=== PATIENT | male | born 1980 | race Caucasian/White ===

== ENCOUNTER 2020-10-26 09:10 | Emergency (ER) | payer OTHER, SELFPAY ==
[2020-10-26 09:18] VITALS: BP 117/70; PULSE 92; RESP 20; TEMP 36.8; O2SAT 99
--- NOTE | 2020-10-26 09:23 | ED.EAR ---
HPI - Ear Problem General Chief complaint: Ear Stated complaint: left ear infection Time Seen by Provider: 10/26/20 09:23 Source: patient and RN notes reviewed Mode of arrival: ambulatory Limitations: no limitations History of Present Illness HPI Narrative: 40-year-old male presents to the [facility] with complaints of left ear pain for 3 days. Patient denies any injury to the area. Has swelling, redness, tenderness to the upper ear lobe. Has tried applying antibiotic ointment but states it was draining so he came to seek medical attention. Denies fevers. Denies any past medical or surgical history Related Data Allergies Allergy/AdvReac Type Severity Reaction Status Date / Time No Known Allergies Allergy Verified 10/26/20 09:36 Review of Systems Review of Systems: Narrative: CONSTITUTIONAL: Denies fever, chills, or sweats. EYES: Denies visual changes, redness, or discharge. ENT: Denies rhinorrhea, congestion, sore throat, or otalgia. CARDIOVASCULAR: Denies chest pain, palpitations, or edema. RESPIRATORY: Denies cough or dyspnea. SKIN: Denies rash or itching. Left ear red, swelling and warmth MUSCULOSKELETAL: Denies back pain, joint pain, or myalgia. NEUROLOGIC: Denies headache, numbness, or weakness. PSYCHIATRIC: Denies anxiety or depression. All other systems reviewed are negative, except as documented in HPI. PMFSH Comments At the time of my signature, I reviewed and agree with the nursing past medical, surgical, social, and family history. There is no relevant family history pertinent to the patient complaint. Exam Narrative: Exam Narrative: GENERAL: This is a well-nourished, well-developed patient, in no apparent distress. HEAD: normocephalic, atraumatic. EYES: PERRL. Sclera clear/white. Vision is grossly intact. EARS: Right external ear normal, bilateral auditory canals clear and without drainage, bilateral TMs normal without perforation. Hearing grossly intact. NOSE: External nose normal with no obvious nasal discharge, nares without redness, no rhinorrhea. CARDIOVASCULAR: Regular rate and rhythm without murmurs, gallops, or rubs. RESPIRATORY: Clear to auscultation. Breath sounds equal bilaterally. No wheezes, rales, or rhonchi. SKIN: warm, intact with no suspicious lesions or rash except left ear, good texture and turgor. NEURO: awake, alert, and oriented to person, place and time. There were no obvious focal neurologic abnormalities. EXTREMITIES: No joint tenderness, effusion, or edema noted. BACK: Nontender without deformity. HENMT: Outer ear/TM images: 1. Wound noted of unknown origin. Serosanguineous fluid draining. Surrounding tissue of the upper half of the ear has cellulitic changes, red, hot, swollen. Ear canal and earlobe appears within normal. No streaking of red cellulitic changes. Course Vital Signs Vital signs: Vital Signs Temperature 98.2 F 10/26/20 09:18 Pulse Rate 92 10/26/20 09:18 Respiratory Rate 20 10/26/20 09:18 Blood Pressure 117/70 10/26/20 09:18 Pulse Oximetry 99 10/26/20 09:18 Temperature 98.2 F 10/26/20 09:18 Pulse Rate 92 10/26/20 09:18 Respiratory Rate 20 10/26/20 09:18 Blood Pressure 117/70 10/26/20 09:18 Pulse Oximetry 99 10/26/20 09:18 Reviewed, within defined limits Medical Decision Making MDM Narrative Medical decision making narrative: Symptoms for this patient has been 3 days. Unknown injury or cause of wound to the ear. Discussed with patient signs and symptoms to go directly to the emergency room. No fluctuant areas. No signs of abscesses. Discharge instructions reviewed with patient, as well as provided in writing per nursing staff. The instructions also include specific and strict return/GO TO THE ER as well as f/u information. All questions have been answered, and the patient deny any further questions with discharge and discharge plan. Differential Diagnosis Differential Diagnosis: Cauliflower ear, earlobe celluliti
== END 2020-10-26 09:45 | disposition home or self-care (01) ==
PROVIDERS: Emergency Provider Nurse Practitioner
DX: H60.12 Cellulitis of left external ear (principal)
CPT/HCPCS: 99203; G0463

== ENCOUNTER 2022-09-01 08:10 | Emergency (ER) | payer OTHER, SELFPAY ==
[2022-09-01 08:15] VITALS: BP 124/75; PULSE 75; RESP 16; TEMP 36.6; O2SAT 100
--- NOTE | 2022-09-01 08:25 | ED.EAR ---
HPI - Ear Problem General Chief complaint: Ear Stated complaint: Ear Pain Time Seen by Provider: 09/01/22 08:24 Source: patient and RN notes reviewed Mode of arrival: ambulatory Limitations: no limitations History of Present Illness HPI Narrative: 43 year male presents concern for left ear pain. He reports worsening pain when he swallows. He reports several day history of pain. He denies drainage from the ears, decreased hearing. He denies recent cold symptoms. He denies facial pain, swelling, redness, denies swelling, redness, tenderness around the ear. MD Complaint: ear pain Related Data Allergies Allergy/AdvReac Type Severity Reaction Status Date / Time No Known Allergies Allergy Verified 09/01/22 08:21 Review of Systems Review of Systems: CONSTITUTIONAL: Denies malaise, chills, sweats, or fever. EYES: Denies visual changes, redness, or discharge. ENT: Denies rhinorrhea, congestion, sinus pain, and sore throat. Reports left ear pain CARDIOVASCULAR: Denies chest pain, palpitations, or edema. RESPIRATORY: Denies cough. Denies dyspnea. GASTROINTESTINAL: Denies abdominal pain, nausea, vomiting, diarrhea SKIN: Denies rash or itching. MUSCULOSKELETAL: Denies myalgia. NEUROLOGIC: Denies headache. All systems reviewed & are unremarkable except as noted in HPI and below PMFSH Comments At time of signature, agree with nursing past medical, surgical, social and family history. There is no relevant family history pertinent to the presenting complaint Exam Narrative: GENERAL: Well-appearing, well-nourished, and in no acute distress. HEAD: Normocephalic EYES: PERRLA, conjunctivae clear ENT: Nares clear, turbinates edematous, clear discharge. Mucous membranes moist. Right TM pearly jesus with sharp light reflex, left TM dull without erythema; no tragal tenderness. Oropharynx not erythematous without lesions. Tonsils not enlarged and without exudate, no drooling, no hoarseness, no trismus, uvula midline. NECK: Supple. No lymphadenopathy CHEST: Clear to auscultation, breath sounds equal. No wheezing, rhonchi, rales, or stridor. No respiratory distress, speaks in full sentences. HEART: Regular rate and rhythm. No murmur heard. SKIN: Warm, dry, no rash. NEURO: Alert and oriented x3. PSYCH: Normal mood and affect Course Course Emergency Course: Patient is aware of diagnosis, understands and agrees to treatment plan. Anticipatory guidance given. Patient agrees to follow-up as directed and is aware of reasons to seek care at the emergency department. Portions of this record may have been created with voice recognition software Level of Care: Express Care Visit Vital Signs Vital signs: Vital Signs Temperature 97.8 F 09/01/22 08:15 Pulse Rate 75 09/01/22 08:15 Respiratory Rate 16 09/01/22 08:15 Blood Pressure 124/75 09/01/22 08:15 Pulse Oximetry 100 09/01/22 08:15 Oxygen Delivery Room Air 09/01/22 08:15 Temperature 97.8 F 09/01/22 08:15 Pulse Rate 75 09/01/22 08:15 Respiratory Rate 16 09/01/22 08:15 Blood Pressure 124/75 09/01/22 08:15 Pulse Oximetry 100 09/01/22 08:15 Oxygen Delivery Room Air 09/01/22 08:15 Reviewed. Medical Decision Making MDM Narrative Medical decision making narrative: Differential diagnosis considered: Linder virus, strep pharyngitis, allergic rhinitis, upper respiratory tract infection, sinusitis, rhinosinusitis, nasopharyngitis. viral pharyngitis, otitis media, otitis externa, otitis effusion, cerumen impaction, foreign body. Exam findings show no acute concerns or changes; patient is non-toxic appearing and is in no distress. Patient is appropriate for outpatient treatment and follow-up. Vital Signs Vital Signs: Vital Signs Temperature 97.8 F 09/01/22 08:15 Pulse Rate 75 09/01/22 08:15 Respiratory Rate 16 09/01/22 08:15 Blood Pressure 124/75 09/01/22 08:15 Pulse Oximetry 100 09/01/22 08:15 Oxygen Delivery Room Air 09/01/22 08:15
== END 2022-09-01 08:35 | disposition home or self-care (01) ==
PROVIDERS: Emergency Provider Nurse Practitioner; PCP Emergency Medicine
DX: H73.892 Other specified disorders of tympanic membrane, left ear (principal)
CPT/HCPCS: 99213; G0463